=== PATIENT | male | born 1975 | race African-American/Black ===

== ENCOUNTER 2019-06-29 01:39 | Emergency (ER) | payer MEDICAID ==
[~2019-06-29] VITALS: Ht 190.5 cm; Wt 117.9 kg
[~2019-06-29 01:39] MED LIST: FURO-570 PO; PHEN100C80 PO; POTA8CER PO; [UNRECOGNIZED DRUG - CODE]; [UNRECOGNIZED DRUG - CODE] PO
[2019-06-29 01:43] VITALS: BP 148/88
--- NOTE | 2019-06-29 01:49 | NUR ---
PT AMBULATED TO BED #7
--- NOTE | 2019-06-29 02:00 | NUR ---
44 Y/O M C/O ABD PAIN X1 WEEK RADIATING TO LOWER BACK 10/22. PT DESCRIBED PAIN BURNING, PRESSURE. PT ALSO STATES HAVING PAINFUL URINATION. PER PT, PT WENT TO ER IN [place] 2 DAYS AGO AND WAS DIAGNOSED WITH COLITIS. PT STATES NOT BEING PRESCRIBED WITH MEDICATION DURING THE ER VISIT AND WAS TOLD TO COME TO ER IF PAIN GETS WORST. BED IN LOWEST POSITION, SIDE RAIL UP X1. HX: DVT, ULCERS, PROTEIN DEFICIENCY, SEIZURE ALLERGIES: MORPHINE
--- NOTE | 2019-06-29 03:01 | NUR ---
SZ PRECAUTIONS INITIATED. SIDE RAILS PADDING ON X 2. BED IN LOW POSITION.
[2019-06-29] MEDS ORDERED: SODIUM CHLORIDE FLUSH 10 ML SYR IVF STA (03:13)
--- NOTE | 2019-06-29 03:17 | NUR ---
LAB AT BEDSIDE.
[2019-06-29 03:39] LABS: APPEARANCE,URINE CLEAR (CLEAR); BLOOD, URINE NEGATIVE (NEGATIVE); COLOR,URINE DARK YELLOW (YELLOW); LEUKOCYTE ESTERASE ,URINE NEGATIVE (NEGATIVE); NITRITE, URINE NEGATIVE (NEGATIVE); UGLUCOSE NEGATIVE (NEGATIVE)
[2019-06-29 03:42] LABS: BASOPHILS # (AUTO) 0.1 K/uL (0.00-0.22); BASOPHILS % (AUTO) 0.8 % (0.0-2.0); EOSINOPHILS # (AUTO) 0.9 K/uL (0-0.4); EOSINOPHILS % (AUTO) 9.2 % (0.0-4.0); HEMATOCRIT 48.4 % (36-52); HEMOGLOBIN 15.9 g/dL (12.0-18.0); LYMPHOCYTES # (AUTO) 1.5 K/uL (2.0-11.5); LYMPHOCYTES % (AUTO) 14.3 % (20.5-51.1); MEAN CORPUSCULAR HEMOGLOBIN 30 pg (27-31); MEAN CORPUSCULAR HGB CONC 33 g/dL (33-37); MEAN CORPUSCULAR VOLUME 91.8 fL (80-94); MONOCYTES # (AUTO) 1.2 K/uL (0.8-1.0); MONOCYTES % (AUTO) 11.4 % (1.7-9.3); NEUTROPHILS # (AUTO) 6.6 K/uL (1.8-7.7); NEUTROPHILS % (AUTO) 64.3 % (42.2-75.2); PLATELET COUNT (AUTO) 282 K/uL (140-450); RED BLOOD CELL COUNT(AUTO) 5.27 MIL/uL (4.20-6.10); RED CELL DISTRIBUTION WIDTH 15.3 % (11.6-13.7); WHITE BLOOD COUNT (AUTO) 10.3 K/uL (4.8-10.8)
[2019-06-29 03:47] LABS: BILIRUBIN,URINE NEGATIVE (NEGATIVE)
[2019-06-29 03:54] LABS: ALBUMIN 2.6 g/dL (3.4-5.0); ANION GAP 9.9 (8-16); CREATININE 1.1 mg/dL (0.6-1.3); POTASSIUM 3.9 mmol/L (3.5-5.1); TOTAL BILIRUBIN 0.7 mg/dL (0.0-1.0)
--- NOTE | 2019-06-29 04:29 | NUR ---
DR. PANG AT BEDSIDE.
[2019-06-29] MEDS ORDERED: HYDROcodone/APAP 5/325 MG 1 TAB TAB PO ONE (04:35)
[2019-06-29] MEDS ORDERED: ALUMINUM HYD/MAG/SIMETHICONE 30 ML UDC PO ONE (05:20)
[2019-06-29] MEDS ORDERED: DICYCLOMINE 10 MG CAP PO ONE (05:20)
[2019-06-29] MEDS ORDERED: LIDOCAINE VISCOUS 2% 20 ML UDC PO ONE (05:20)
--- NOTE | 2019-06-29 05:29 | NUR ---
PT TRANSPORTED TO CT VIA [facility].
[2019-06-29] MEDS ORDERED: NACL 0.9% 1,000 ML IV ONE (05:35)
--- NOTE | 2019-06-29 05:50 | NUR ---
PT BACK FROM CT VIA [facility]
--- NOTE | 2019-06-29 06:07 | NUR ---
PT ASLEEP, NO RESPIRATORY DISTRESS NOTED. BED IN LOWEST POSITION, SIDE RAIL UP X1. WILL CONTINUE TO MONITOR.
[2019-06-29 07:08] VITALS: BP 148/88
--- NOTE | 2019-06-29 07:09 | NUR ---
BRAYAN PANG EXPLAINED THE CT RESULTS TO PT AT BEDSIDE, WAS TOLD TO FOLLOW UP WITH HIS PRIMARY.
--- NOTE | 2019-06-29 07:09 | NUR ---
Patient discharged with v/s stable. Written and verbal after care instructions given and explained. Patient alert, oriented and verbalized understanding of instructions. Ambulatory with steady gait. All questions addressed prior to discharge. ID band removed. Patient advised to follow up with PMD. Rx of COLACE AND NORCO given. Patient educated on indication of medication including possible reaction and side effects. Opportunity to ask questions provided and answered.
== END 2019-06-29 07:08 | disposition home or self-care (01) ==
LOC: MED 01:51
DX: R10.84 Generalized abdominal pain (principal); F17.200 Nicotine dependence, unspecified, uncomplicated; Z86.718 Personal history of other venous thrombosis and embolism; Z79.899 Other long term (current) drug therapy; Z88.5 Allergy status to narcotic agent
CPT/HCPCS: 36415; 74176; 80053; 81003; 82948; 83690; 85025; 99284; J7030